=== PATIENT | male | born 2000 | race Caucasian/White ===

== ENCOUNTER 2019-11-12 12:05 | Emergency (ER) | payer BC, SELFPAY ==
[2019-11-12 12:09] VITALS: BP 146/77; PULSE 69; RESP 18; TEMP 36.5; O2SAT 98; BMI 35.2
--- NOTE | 2019-11-12 12:24 | ED_ITS ---
HPI - Headache General: Chief Complaint: Headache Stated Complaint: headache Time Seen by Provider: 11/12/19 12:09 Source: patient Mode of arrival: ambulatory Limitations: no limitations History of Present Illness: HPI Narrative: Patient is a 19-year-old male who presents to ED today for evaluation of his headache and other symptoms that have resolved upon arrival. Patient tells me around 9:30 AM while working he began developing a posterior headache, blurry vision and nausea. Patient states he went to go lay down and began developing numbness to his left arm and left face. He also states his tongue felt numb. Patient states symptoms lasted approximately 45 minutes and then subsided. He states he went home and began feeling dizzy. They contacted his PCP who recommended he come to the emergency department. Upon arrival patient has no neurological deficits. He states his vision is back to normal. He still complains of a headache and nausea. Patient has no history of migraine headaches. Patient does state he struck his head last but no other recent injury or trauma. MD elicited complaint: headache Onset (ago): hour(s) Location: other (posterior) Exacerbating factors: none Relieving factors: nothing Associated symptoms: Reports nausea; Deny chest pain, confusion, fever(s), lightheadedness, malaise, pre-syncope, rash, syncope or vomiting Review of Systems Const: Denies: fever(s), chills, body aches, fatigue or malaise Eyes: Reports: blurry vision (subsided now); Denies: photophobia, floaters or seeing flashes ENMT: Denies: odynophagia Card: Denies: chest pain, palpitations, irregular heart rhythm, edema, swelling of feet/ankles, lightheadedness, syncope, pre-syncope, dyspnea on exertion, orthopnea or leg pain with exertion Resp: Denies: dyspnea, productive cough, non-productive cough, pain on inspiration, hemoptysis or chest congestion GI: Reports: nausea; Denies: abdominal pain, vomiting, heartburn or diarrhea : Denies: flank pain, difficulty urinating, dysuria, urinary frequency, urinary urgency or urinary hesitancy Musc: Denies: neck pain, back pain or joint pain Skin/Breast: Denies: rash Neuro: Reports: headache(s), numbness in extremities (L arm-subsided now), sensory changes (facial paresthesias-subsided now) and dizziness (subsided now ); Denies: weakness in extremities, lack of coordination, difficulty walking, confusion, Slurred speech present or seizure-like activity PFSH ED PFSH: Social History (Updated 07/10/19 @ 11:03 by Estephania Silverio LPN) Smoking and tobacco status: current every day smoker e-cigarettes Physical Exam Const: COMMON NORMALS: no acute distress, patient oriented x3, no limitations and alert ORIENTATION/CONSCIOUSNESS: Yes oriented to person, Yes oriented to place and Yes oriented to time HENMT: COMMON NORMALS: normocephalic, atraumatic, hearing grossly normal bilaterally, external ears normal, EAC's normal and TM's normal bilaterally HEAD & SCALP: normal to inspection, normocephalic and atraumatic FACE & SINUS: normal facial exam and sinuses nontender EXTERNAL EAR: Yes external ears normal EXTERNAL AUDITORY CANAL: EAC's normal TYMPANIC MEMBRANE: TM's normal bilaterally MOUTH: Normal oral and palatal mucosa present, lip normal and tongue normal Eye: COMMON NORMALS: Equal, round and reactive pupils present, EOMs intact bilaterally, conjunctivae normal and no scleral icterus GENERAL EYE: appearance normal, both eyes and all related structures VISUAL ACUITY: Yes acuity normal CONJUNCTIVA: Yes conjunctivae normal PUPIL: Yes Equal, round and reactive pupils present Neck/C-Spine: COMMON NORMALS: full ROM, no lymphadenopathy and no meningeal signs Resp: COMMON NORMALS: normal respiratory effort and clear to auscultation bilaterally AUSCULTATION: clear to auscultation bilaterally Cardio: COMMON NORMALS: regular rate and regular rhythm RATE: regular rate RHYTHM: regular rhythm Extremity: COMMON NORMALS: normal to inspection and full ROM GENERAL: Yes normal exam except as noted Neuro: QUYEN COMA SCALE: document GCS findings Brainerd coma scale eye opening: Spontaneous Quyen coma scale verbal response: Orientated Brainerd coma scale motor response: Obey commands Quyen coma scale total score: 15 COMMON NORMALS: patient oriented x3, CN's II-XII intact bilaterally, moves all extremities, no focal motor deficits, no sensory deficits noted and gait normal SENSORIUM/ORIENTATION: Yes alert, Yes oriented to person, Yes oriented to place and Yes oriented to time MENINGEAL SIGNS: Yes no meningeal signs SPEECH: speech normal MOTOR EXAM: 5/5 motor strength present throughout OTHER: NIHSS-0 Skin: COMMON NORMALS: no rashes or lesions noted GENERAL SKIN EXAM: no rashes or lesions noted Course Reevaluation(s): Reevaluation #1: SUAREZ/nausea much better after IV meds/fluids Vital Signs: Vital signs: Vital Signs Temperature 97.7 F 11/12/19 12:09 Pulse Rate 69 11/12/19 15:04 Respiratory Rate 16 11/12/19 15:04 Blood Pressure 126/55 11/12/19 15:04 Pulse Oximetry 96 11/12/19 15:04 MDM - Headache MDM Narrative: Medical decision making narrative: Patient with absolutely no neurological deficits here. His SUAREZ/nausea improved with IV meds/fluids. Patient feels comfortable going home at this time. His work up with labs/head CT are normal. Recommend close obs on symptoms at home and returning to ED for any concerns. Lab Data: Labs: Lab Results 11/12/19 11/12/19 11/12/19 Range/Units 12:58 12:58 13:48 WBC 5.6 (4.5-13.0) 10^3/ uL RBC 4.52 (4.1-5.3) 10^6/u L Hgb 13.2 (11.7-16.6) g/dL Hct 39.3 L (42.0-52.0) % MCV 86.9 (80-94) fL MCH 29.2 (28.0-34.0) pg MCHC 33.6 (30.0-36.0) g/dL RDW 11.8 L (12.1-15.1) % Plt Count 238 (130-400) 10^3/c mm MPV 10.0 (7.4-10.4) fL Neut % (Auto) 40.8 % Lymph % (Auto) 46.6 % Desoto % (Auto) 10.2 % Eos % (Auto) 1.8 % Baso % (Auto) 0.4 % Neut # (Auto) 2.29 (1.8-8.0) 10^3/u L Lymph # (Auto) 2.6 (1.5-6.5) 10^3/u L Desoto # (Auto) 0.6 (0.2-0.9) 10^3/u L Eos # (Auto) 0.1 (0.0-0.8) 10^3/u L Baso # (Auto) 0.0 (0.0-0.1) 10^3/u L Nucleated RBC % (a uto) 0 % Nucleated RBCs # 0.0 /100WBC Sodium 137 (136-145) mmol/L Potassium 4.1 (3.5-5.1) mmol/L Chloride 104 (98-107) mmol/L Carbon Dioxide 27 (22-29) mmol/L Anion Gap 10.1 (5-19) BUN 16 (6-20) mg/dL Creatinine 0.8 (0.7-1.2) mg/dL GFR Calculation 123.2 (90-130) mL/min Glucose 91 (65-115) mg/dL Calculated Osmolal ity 280 L (285-295) mOsm/k g Calcium 8.8 (8.5-10.5) mg/dL Total Bilirubin 0.2 (0.15-1.2) mg/dL AST 15 (0-40) U/L ALT 18 (0-41) U/L Alkaline Phosphata se 55 (40-130) IU/L Total Protein 6.7 (6.6-8.7) g/dL Albumin 4.2 (3.5-5.2) g/dL Globulin 2.5 (1.3-4.6) g/dL Urine Color Yellow (Yellow) Urine Appearance Clear (CLEAR) Urine pH 6 (5-7) Ur Specific Gravit y 1.020 (1.005-1.030) Urine Protein Neg (Negative) Urine Glucose (UA) Norm (Normal) Urine Ketones Negative (Negative) Urine Blood Neg (Negative) Urine Nitrate Negative (Negative) Urine Bilirubin Neg (NEGATIVE) Urine Urobilinogen Norm (Negative) mg/dL Ur Leukocyte Laverne ase Negative (Negative) Imaging Data^: CT Head: Radiologist's impression: [address] [address] [address] Scan Report Signed Patient: Iván Arreguin Unit #: [id number] : 2000 [id number] Age/Sex: 19 / M ADM Date: 11/12/19 Loc: ER Room/Bed: Attending Dr: Ordering Provider/Ordering MD: Melissa Brink Date of Service: 11/12/19 Procedure(s): CT head wo con* [id number] Accession Number(s): [id number] Report Number: [id number] WS: [id number] EXAM: CT head wo con* [id number] DATE OF EXAMINATION: 11/12/2019, 1332 hours COMPARISON: None. HISTORY: 19 years old with headache left side of the head with left-sided numbness. TECHNIQUE: Thin slice imaging obtained through the brain without the utilization of contrast. Images viewed in brain, subdural and bone window with reconstructions. CONTRAST: None DLP: 832.[address] scans at [facility] use at least one of these dose optimization techniques: automated exposure control; mA and/or kV adjustment per patient size (includes targeted exams where dose is matched to clinical indication); or iterative reconstruction. FINDINGS: Matthews-white differentiation is normal. No findings of hemorrhage, hydrocephalus, mass, mass effect or abnormal extra-axial fluid collection is seen. No acute skull abnormality is demonstrated. Extracalvarial soft tissues are unremarkable. Paranasal sinuses and mastoid air cells are pneumatized and well aerated. CT/CT head wo con* [id number] IMPRESSION: No acute intracranial process. Dictated By: Andrés Thomas MD Signed By: Andrés Thomas MD Signed Date/Time: 11/12/19 135 DD/ 135 Discharge Plan Discharge Patient Disposition: Home Clinical Impression: Headache Qualifiers: Headache type: unspecified Headache chronicity pattern: acute headache Intractability: not intractable Qualified Code(s): R51 - Headache Condition: Stable Prescriptions: No Action ibuprofen 200 mg Tablet 800 mg PO PRN RF: 0 Discharge Orders: Discharge Order (Routine); Ordered 11/12/19 Ordered By: Melissa Brink Referrals: Leonid Cherry Jr, MD [Primary Care Provider] - Patient Instructions: Headache - Migraine (Adult), Migraine Headache (ED), Acute Headache (ED) Activity Restrictions/Additional Instructions: Again as we discussed you have no neurological deficits at this time. Headache and nausea have improved with medications here. Patient's labs and head CT are normal. Please return to the emergency department for worsening headache, onset of severe dizziness impairing gait, repetitive episodes of vomiting, visual loss, numbness/tingling to your extremities, slurred speech, facial drooping, any other concerns you may have. Discharge Date/Time: 11/12/19 15:11 Coding Level of Care Code ED Airset Caster for Chg Fwd Exam Comprehensive
[2019-11-12] MEDS: sodium chloride 0.9% 1,000 ML 999 ML IV ×2 (12:35→14:06)
--- NOTE | 2019-11-12 12:44 | CT_ITS ---
WS: [id number] EXAM: CT head wo con* [id number] DATE OF EXAMINATION: 11/12/2019, 1332 hours COMPARISON: None. HISTORY: 19 years old with headache left side of the head with left-sided numbness. TECHNIQUE: Thin slice imaging obtained through the brain without the utilization of contrast. Images viewed in b rain, subdural and bone window with reconstructions. CONTRAST: None DLP: 832.[address] scans at [facility] use at least one of these dose optimization techniques: automat ed exposure control; mA and/or kV adjustment per patient size (includes targeted exams where dose is matched to clinical indication); or iterative reconstruction. FINDINGS: Matthews-white differentiation is normal. No findings of hemorrhage, hydrocephalus, mass, mass effect or abnormal extra-axial fluid collection is seen. No acute skull abnormality is demonstrated. Extracalv arial soft tissues are unremarkable. Paranasal sinuses and mastoid air cells are pneumatized and well aerated. CT/CT head wo con* [id number] IMPRESSION: No acute intracranial process.
[2019-11-12 13:03] LABS: Basophils % 0.4 %; Eosinophils # 0.1 10^3/uL (0.0-0.8); Eosinophils % 1.8 %; Hematocrit 39.3 % (42.0-52.0); Hemoglobin 13.2 g/dL (11.7-16.6); Lymphocytes # 2.6 10^3/uL (1.5-6.5); Lymphocytes % 46.6 %; Mean Corpuscular HGB Conc 33.6 g/dL (30.0-36.0); Mean Corpuscular Hemoglobin 29.2 pg (28.0-34.0); Mean Corpuscular Volume 86.9 fL (80-94); Monocytes # 0.6 10^3/uL (0.2-0.9); Monocytes % 10.2 %; Neutrophils # 2.29 10^3/uL (1.8-8.0); Neutrophils % 40.8 %; Nucleated Red Blood Cells % 0 %; Platelet Count 238 10^3/cmm (130-400); Red Blood Count 4.52 10^6/uL (4.1-5.3); Red Cell Distribution Width 11.8 % (12.1-15.1); White Blood Count 5.6 10^3/uL (4.5-13.0)
[2019-11-12 13:20] LABS: Alanine Aminotransferase 18 U/L (0-41); Albumin Level 4.2 g/dL (3.5-5.2); Alkaline Phosphatase 55 IU/L (40-130); Anion Gap 10.1 (5-19); Aspartate Amino Transferase 15 U/L (0-40); Blood Urea Nitrogen 16 mg/dL (6-20); Calcium 8.8 mg/dL (8.5-10.5); Carbon Dioxide 27 mmol/L (22-29); Chloride 104 mmol/L (98-107); Globulin 2.5 g/dL (1.3-4.6); Glomerular Filtration Rate 123.2 mL/min (90-130); Glucose 91 mg/dL (65-115); Osmolality Calculated 280 mOsm/kg (285-295); Potassium 4.1 mmol/L (3.5-5.1); Sodium 137 mmol/L (136-145); Total Bilirubin 0.2 mg/dL (0.15-1.2); Total Protein 6.7 g/dL (6.6-8.7)
[2019-11-12] MEDS: diphenhydrAMINE 50 mg/mL SDV 1mL IVP (13:22)
[2019-11-12] MEDS: ondansetron 2 mg/ML SDV 2 mL 4 MG IVP (13:23)
[2019-11-12] MEDS: ketorolac 60 mg/2 mL INJ 30 MG IVP (13:24)
[2019-11-12 13:30] VITALS: BP 124/71; PULSE 55; RESP 16; O2SAT 99
[2019-11-12 13:59] VITALS: BP 137/65; PULSE 75; RESP 16; O2SAT 98
[2019-11-12 14:03] LABS: Add Urine Microscopic? NO
[2019-11-12 14:17] LABS: Bilirubin Urine Neg (NEGATIVE); Blood Urine Neg (Negative); Glucose Urine UA Norm (Normal); Ketones Urine Negative (Negative); Leukocyte Esterase Urine Negative (Negative); Nitrate Urine Negative (Negative); Protein Urine Neg (Negative); Urine Appearance Clear (CLEAR); Urine Color Yellow (Yellow); Urobilinogen Urine Norm (Negative); pH Urine 6 (5-7)
[2019-11-12 15:04] VITALS: BP 126/55; PULSE 69; RESP 16; O2SAT 96
== END 2019-11-12 15:11 | disposition home or self-care (01) ==
PROVIDERS: Emergency Provider Physician Assistant; PCP Family Medicine
DX: R51 Headache (principal); F17.290 Nicotine dependence, other tobacco product, uncomplicated
CPT/HCPCS: 12345; 36415; 70450; 80053; 81003; 85025; 96361; 96374; 96375; 99283; J1200; J1885; J2405; J7030

== ENCOUNTER 2021-08-07 20:48 | Emergency (ER) | payer BC, SELFPAY ==
[2021-08-07 20:49] VITALS: BP 136/72; PULSE 109; RESP 16; TEMP 36.6; O2SAT 99
--- NOTE | 2021-08-07 21:06 | W.ED.EXTPRO ---
HPI - Extremity Problem General: Chief complaint: Extremity Injury, Upper Stated complaint: L thumb cut Time Seen by Provider: 08/07/21 20:58 History of Present Illness: 21-year-old male patient comes in today with complaints of laceration to the dorsal base of the left thumb. Patient has good range of motion of the thumb. Patient cannot recall his last tetanus shot. Patient and his father both cleaned the wound with water at home and put some superglue to it. The glue has made it difficult to evaluate the wound. Tendon function is normal. Associated symptoms: Deny chest pain or fever(s) Review of Systems General: Reports: 10 or more systems reviewed and unremarkable except in HPI and below Const: Denies: fever(s) Card: Denies: chest pain Resp: Denies: dyspnea GI: Denies: nausea or vomiting : Reports: other (History of 1 kidney) Skin/Breast: Reports: new lesions [facility] ED PFSH: Social History (Updated 07/10/19 @ 11:03 by Estephania Silverio LPN) Smoking and tobacco status: current every day smoker e-cigarettes Physical Exam Const: COMMON NORMALS: alert HENMT: COMMON NORMALS: normocephalic HEAD & SCALP: normocephalic Neck/C-Spine: COMMON NORMALS: full ROM Resp: COMMON NORMALS: normal respiratory effort Cardio: COMMON NORMALS: regular rate RATE: regular rate Extremity: LEFT UPPER EXTREMITY: Yes hand & digits (Dorsal hand at the base of the thumb, normal tendon function) Left hand and digits: Yes inspection, Yes palpation, Yes ROM, Yes neurovascular exam and Yes tendon exam Neuro: SENSORIUM/ORIENTATION: Yes alert Skin: NARRATIVE SKIN EXAM: 1 cm laceration to left hand. Procedures Laceration Laceration 1: Site: hand Side (If applicable): left Size (cm): 3 Description: linear Depth: simple, single layer Amount of anesthesia used (mL): 3 Pre-repair: wound explored and irrigated extensively Skin layer closed with: vicryl Size (cm): 4-0 Number of sutures: 3 Technique: horizontal mattress Course Vital Signs: Vital signs: Vital Signs Temperature 97.8 F 08/07/21 20:49 Pulse Rate 109 H 08/07/21 20:49 Respiratory Rate 16 08/07/21 20:49 Blood Pressure 136/72 08/07/21 20:49 Pulse Oximetry 99 08/07/21 20:49 MDM - Extremity (Nontraumatic) Medical Decision Making 21-year-old male patient comes in today with laceration to the left hand. On exam at the base of the left thumb on the dorsal side there is a 3 cm laceration. Patient has good normal range of motion of the finger. Wound had to be cleaned with bacitracin ointment to remove superglue from the wound site. Patient had normal range and function tendon. Differential diagnosis includes fracture, sprain, foreign body. No fracture was noted in the wound. No foreign body was noted. Wound was irrigated well and then closed with 4-0 Vicryl in horizontal mattress sutures. Patient tolerated well. Patient will be placed on Augmentin 1 tablet twice a day for prophylaxis therapy due to delayed care. Patient reported understanding of care plan and need for follow-up or return to ER. Discharge Plan Discharge Patient Disposition: Home Clinical Impression: Hand laceration Qualifiers: Encounter type: initial encounter Foreign body presence: without foreign body Laterality: left Qualified Code(s): S61.412A - Laceration without foreign body of left hand, initial encounter Condition: Stable Prescriptions: New amoxicillin-pot clavulanate 875-125 mg tablet 1 tab PO BID Qty: 14 0RF No Action ibuprofen 200 mg Tablet 800 mg PO PRN 0RF Discharge Orders: Discharge ED (Routine); Ordered 08/07/21 Ordered By: Juma Bravo Discharge Diet: Usual diet Discharge Activity: Increase activity as tolerated Patient Instructions: Laceration (ED) Activity Restrictions/Additional Instructions: Keep wound clean and dry. It is very important to keep the wound is dry and clean as possible for the next 2 days. Splint the wound with bulky dressing. Monitor site for signs of infection. Sutures need to come out in 7 to 10 days. Follow-up with primary care in 1 week for recheck. Take antibiotics 1 tablet twice a day for the next 7 days. Use acetaminophen and ibuprofen for pain. Return to ER for new concerns. Coding Level of Care Code ED Fire Lieutenant Marine for Shakira Quispe Exam Detailed
[2021-08-07] MEDS: amoxicillin-clav 875-125 mg Tablet 1 TAB PO (21:36)
[2021-08-07] MEDS: tetanus-dipt-pertussis 0.5 mL SDV IM (21:37)
[2021-08-07] MEDS: bacitracin ointment Pkt 1 EACH TOPICAL (21:37)
[2021-08-07 21:53] VITALS: RESP 16
== END 2021-08-07 21:54 | disposition home or self-care (01) ==
PROVIDERS: Emergency Provider Nurse Practitioner Family
DX: S61.012A Laceration without foreign body of left thumb without damage to nail, initial encounter (principal); X58.XXXA Exposure to other specified factors, initial encounter; Z23 Encounter for immunization
CPT/HCPCS: 12001; 90471; 90715; 99283

== ENCOUNTER 2021-12-21 12:42 | Outpatient (CLI) | payer OTHER, SELFPAY ==
--- NOTE | 2021-12-21 12:49 | MR_ITS ---
WS: [id number] MRI RIGHT KNEE NONCONTRAST TECHNIQUE: Axial PD, coronal PD fat sat, coronal PD, sagittal PD, and sagittal PD fat-sat images obta ined. CLINICAL INFORMATION: + LAUREN TEST RIGHT KNEE COMPARISON: None. FINDINGS: Distal quadriceps and patella tendons are intact. Tibial tunnel with evidence of prior ACL repair. AC L graft appears intact but somewhat thin and diminutive. Mucoid degeneration in the ACL graft. Normal PCL. Small suprapatellar effusion. Moderate chondromalacia patella. Medial and lateral patella r retinacula appear intact. Hypertrophic patella. Medial and lateral collateral ligaments appear inta ct. Normal popliteal fossa. Chronic thinning of the medial and lateral meniscus. Radial tear involvin g the posterior horn medial meniscus extending to the articular surface and free edge of the meniscus . This also extends to the meniscal root. MR/MR knee RT wo con* [id number] IMPRESSION: 1. Prior ACL repair. ACL graft appears intact but somewhat diminutive with muc oid degeneration. 2. Normal PCL. 3. Radial tear involving the posterior horn medial meniscus extending to the m eniscal root and articular surface. This extends to the free edge of the menisc us. 4. Moderate chondromalacia patella. Small suprapatellar effusion. 5. Grade III chondromalacia involving the medial and lateral joint compartment s. 6. Medial and lateral collateral ligaments appear intact. Outbridge grading: grade III: partial-thickness cartilage loss with focal ulcer ation
== END 2021-12-21 12:43 | disposition home or self-care (01) ==
LOC: RAD 12:42
PROVIDERS: Visit Provider Nurse Practitioner
DX: S83.241A Other tear of medial meniscus, current injury, right knee, initial encounter (principal); X58.XXXA Exposure to other specified factors, initial encounter; M25.461 Effusion, right knee; M22.41 Chondromalacia patellae, right knee
CPT/HCPCS: 73721

== ENCOUNTER 2023-02-04 16:26 | Emergency (ER) | payer BC, SELFPAY ==
[2023-02-04 17:01] VITALS: BP 157/63; PULSE 81; RESP 16; TEMP 36.4; O2SAT 100; BMI 36.2
--- NOTE | 2023-02-04 18:26 | XRR_ITS ---
PROCEDURE INFORMATION: Exam: XR Left Tibia and Fibula Exam date and time: 02/04/2023 6:40 PM Age: 22 years old Clinical indication: Lower leg; Patient HX: Lt lateral lower extremity pain after being pinned against fence by cow; Abrasion to left lateral lower extremity TECHNIQUE: Imaging protocol: Radiologic exam of the left tibia and fibula. Views: 2 views. COMPARISON: No relevant prior studies available. FINDINGS: Bones/joints: No acute fracture. No dislocation. Normal bone mineralization. No joint effusion. Joint spaces are maintained. There is an ununited os trigonum of the talus. Accessory ossicle adjacent to the cuboid bone. Soft tissues: No soft tissue swelling. No radiopaque foreign body. XR/XR tibia fibula LT 2V [id number] IMPRESSION: 1. No acute fracture of the left tibia/fibula. Followup imaging recommended in 7-14 days if clinical concern for fracture persists. 2. Incidental/nonacute findings are listed in the report.
[2023-02-04 18:35] VITALS: BP 168/78; RESP 17; O2SAT 98
--- NOTE | 2023-02-04 18:56 | W.ED.EXTPRO ---
HPI - Extremity Problem General: Chief complaint: Extremity Injury, Lower Stated complaint: Hurt left leg Time Seen by Provider: 02/04/23 18:11 History of Present Illness: Patient is a 22-year-old male that presents to the emergency department with left calf pain. 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 Patient has been able to ambulate on the extremity. This has been difficult due to pain though. Review of Systems General: Reports: 10 or more systems reviewed and unremarkable except in HPI and below PFSH ED PFSH: Social History (Updated 01/13/22 @ 09:50 by [place] Obrien LPN) Smoking and tobacco/nicotine status: current every day tobacco/nicotine user cigarettes Packs smoked per day: 0.01 and e-cigarettes E-Cigarette Details: vaporizer device and with nicotine E-cig/vape details: Refill/ week Second hand smoke exposure: No Alcohol intake: current Alcohol type: beer and hard liquor Substance/Drug Use: never Physical Exam Narrative: EXAM NARRATIVE: No acute distress Alert and orient x3 Afebrile vital signs stable Nonlabored breathing Moving all extremities Left lower extremity: Skin is clean dry intact Patient is nontender to palpation over the left hip, femur, knee. He is nontender to palpation over the ankle He has full active range of motion of hip knee and ankle Patient can dorsiflex plantarflex the foot Able to dorsiflex great toe Sensation intact to light touch at medial, lateral, dorsal, plantar surface of the foot and first webspace DP pulses palpable and cap refills less than 3 seconds Course Vital Signs: Vital signs: Vital Signs Temperature 97.6 F 02/04/23 17:01 Pulse Rate 81 02/04/23 17:01 Respiratory Rate 17 02/04/23 18:35 Blood Pressure 168/78 02/04/23 18:35 Pulse Oximetry 98 02/04/23 18:35 Oxygen Delivery Me thod Room Air 02/04/23 18:35 MDM - Extremity (Nontraumatic) Medical Decision Making Patient presented with left lateral calf pain 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 He reports hearing and feeling a pop and pain. Differential diagnosis includes fracture, fracture dislocation, contusion, muscle strain, sprain. Patient underwent XR imaging of the left tibia. No acute fractures identified. All radiology interpretation(s) finalized by discharge Discharge Plan Discharge Patient Disposition: Home Clinical Impression: Contusion of left leg, Muscle strain Condition: Stable Prescriptions: No Action fluoxetine [Prozac] 20 mg capsule 20 mg PO DAILY Qty: 30 1RF trazodone 50 mg tablet 100 mg PO .HS PRN (Reason: insomnia) Qty: 60 1RF ibuprofen 200 mg Tablet 800 mg PO PRN Discharge Orders: Discharge ED (Routine); Ordered 02/04/23 Ordered By: Sayda Simpson Referrals: Jocelyn Stringer MD [Primary Care Provider] - Discharge Diet: Advance as tolerated Discharge Activity: Resume usual activity Patient Instructions: Muscle Strain (ED), Pain Management Activity Restrictions/Additional Instructions: When she did ice the area, use ibuprofen and Tylenol for pain You can bear weight as tolerated Keep the extremity elevated when at rest. Return to the emergency department for new, concerning, worsening symptom Coding Level of Care Code ED J2Ee Android Developer for Shakira Quispe
[2023-02-04] MEDS: ketorolac 60 mg/2 mL INJ IM (19:31)
[2023-02-04 19:32] VITALS: BP 168/78; PULSE 96; RESP 17; O2SAT 98
== END 2023-02-04 19:33 | disposition home or self-care (01) ==
PROVIDERS: Emergency Provider Nurse Practitioner; PCP Family Medicine
DX: S80.12XA Contusion of left lower leg, initial encounter (principal); S86.912A Strain of unspecified muscle(s) and tendon(s) at lower leg level, left leg, initial encounter; F17.210 Nicotine dependence, cigarettes, uncomplicated; F17.290 Nicotine dependence, other tobacco product, uncomplicated; W55.22XA Struck by cow, initial encounter
CPT/HCPCS: 73590; 96372; 99284; J1885

== ENCOUNTER → 2024-06-13 07:20 | Outpatient (BNVA) | payer BC, SELFPAY | PROVIDERS: PCP Family Medicine; Visit Provider Podiatrist Foot & Ankle Surgery | DX: M79.671 Pain in right foot (principal); M25.571 Pain in right ankle and joints of right foot; S93.621A Sprain of tarsometatarsal ligament of right foot, initial encounter; X50.9XXA Other and unspecified overexertion or strenuous movements or postures, initial encounter | CPT/HCPCS: 73610; 73620 ==

== ENCOUNTER 2024-06-28 07:48 | Outpatient (CLI) | payer BC, SELFPAY ==
--- NOTE | 2024-06-28 08:00 | MRR_ITS ---
PROCEDURE INFORMATION: Exam: MR Right Lower Extremity Without Contrast; Forefoot Exam date and time: 06/28/2024 8:25 AM Age: 24 years old Clinical indication: Injury or trauma; Sprain or strain; Right; Injury date: 2+ months ago; Injury details: Injured RT foot 2 + months, stepped on cattle guard. Poss. Sprain; Additional info: S93.629a - sprain of tarsometatarsal ligament of unspecif. . . TECHNIQUE: Imaging protocol: MR of the right foot without contrast. Exam focused on the forefoot. COMPARISON: CR XR foot RT 2V [id number] 06/13/2024 7:28 AM FINDINGS: Bones/joints: Normal osseous alignment. No acute fracture. There is a healed fracture of the base of the 5th metatarsal. Mild patchy bone marrow edema involving the proximal shafts and bases of the 3rd and 4th metatarsals is noted, characterized by hyperintensity on the fluid sensitive sequences with minimal corresponding T1 hypointensity. LIGAMENTS: Collateral ligaments of digits: Unremarkable. No evidence of tear. TENDONS: Flexor tendons of foot: Unremarkable. No evidence of tear. Extensor tendons of foot: Unremarkable. No evidence of tear. Soft tissues: Unremarkable. MR/MR foot RT wo con* [id number] IMPRESSION: Bone marrow edema in the proximal 3rd and 4th metatarsals is noted, likely related to bone contusions or stress changes in the setting of trauma.
== END 2024-06-28 07:49 | disposition home or self-care (01) ==
LOC: RAD 07:51
PROVIDERS: PCP Family Medicine; Visit Provider Podiatrist Foot & Ankle Surgery
DX: Z87.81 Personal history of (healed) traumatic fracture (principal); R93.6 Abnormal findings on diagnostic imaging of limbs
CPT/HCPCS: 73718

== ENCOUNTER 2024-09-27 22:33 | Emergency (ER) | payer BC, SELFPAY ==
--- OUTSIDE RECORDS SUMMARY | 2024-09-27 22:40 | XMS_ITS | Encounter Summary ---
Author Organization [facility] Address [address] [place] [address] Care Team Providers Care Fire Investigation Lieutenant Name Role Phone Leonid Cherry MD Primary Care Provider [phone] Encounter Details Date Type Department Care Team (Latest Contact Info) Description 01/30/2001 Outpatient Historical [facility] Gen Spec S[facility] [place] [address] [address] [place] [id number] Jerardo Valdez MD [address], [address] [place] [address] UNILAT INGUINAL HERNIA (Primary Dx); SURGERY FOLLOWUP, UNSPEC Social History Tobacco Use Types Packs/Day Years Used Date Smoking Tobacco: Never Assessed Sex and Gender Information Value Date Recorded Sex Assigned at Not on file 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
--- OUTSIDE RECORDS SUMMARY | 2024-09-27 22:40 | XMS_ITS | Encounter Summary ---
Author Organization [facility] Address [address] [place] [address] Care Team Providers Care Hot Baller Name Role Phone Leonid Cherry MD Primary Care Provider [phone] Encounter Details Date Type Department Care Team (Latest Contact Info) Description 10/26/2003 Outpatient Historical [facility] [address] [place] [phone] Zeinab Larios MD [address] [address] STREP SORE THROAT (Primary Dx) Social History Tobacco Use Types Packs/Day Years Used Date Smoking Tobacco: Never Assessed Sex and Gender Information Value Date Recorded Sex Assigned at Not on file 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
--- OUTSIDE RECORDS SUMMARY | 2024-09-27 22:40 | XMS_ITS | Encounter Summary ---
Author Organization [facility] Address [address] [place] [address] Care Team Providers Care Metrologist Name Role Phone Leonid Cherry MD Primary Care Provider [phone] Encounter Details Date Type Department Care Team (Latest Contact Info) Description 01/15/2004 Outpatient Historical [facility] [place] [address] [facility] [address] [place] [address] Starla Christian, BEAUTY PARLOR CLEANER NO ADDRESS ON FILE ABDOMINAL PAIN UNSPEC SITE (Primary Dx) Social History Tobacco Use Types Packs/Day Years Used Date Smoking Tobacco: Never Assessed Sex and Gender Information Value Date Recorded Sex Assigned at Not on file 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
--- OUTSIDE RECORDS SUMMARY | 2024-09-27 22:40 | XMS_ITS | Encounter Summary ---
Author Organization [facility] Address [address] [place] [address] Care Team Providers Care Beef Cattle Specialist Name Role Phone Leonid Cherry MD Primary Care Provider [phone] Encounter Details Date Type Department Care Team (Latest Contact Info) Description 02/08/2005 Outpatient Historical [facility] [address] [place] [phone] Pipo Alfaro MD [address] [place] [address] IMPETIGO (Primary Dx) Social History Tobacco Use Types Packs/Day Years Used Date Smoking Tobacco: Never Assessed Sex and Gender Information Value Date Recorded Sex Assigned at Not on file 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
--- OUTSIDE RECORDS SUMMARY | 2024-09-27 22:40 | XMS_ITS | Encounter Summary ---
Author Organization [facility] Address [address] [place] [address] Care Team Providers Care Assembly Department Supervisor Name Role Phone Leonid Cherry MD Primary Care Provider [phone] Encounter Details Date Type Department Care Team (Latest Contact Info) Description 11/08/2004 Outpatient Historical [facility] Medicine [address] [address] Don Michael MD [address], [place] [phone] VACCINE FOR DTP + TAB (Primary Dx); VACCINE FOR DISEASE NEC; VACCINE [id number] Social History Tobacco Use Types Packs/Day Years Used Date Smoking Tobacco: Never Assessed Sex and Gender Information Value Date Recorded Sex Assigned at Not on file 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 Gender Identity Not on file Sexual Orientation Not on file documented as of this encounter Plan of Treatment Not on file documented as of this encounter Visit Diagnoses Diagnosis Need for prophylactic vaccination with eseqajksuk-fojzaqo-vyytttxrc with typhoid-paratyphoid (DTP + TAB) vaccine- Primary Need for prophylactic vaccination and inoculation against other specified disease Need for prophylactic vaccination with pzhnidg-idyxp-cjqieht (MMR) vaccine documented in this encounter Care Teams Assembly Department Supervisor Relationship Specialty Start Date End Date Leonid Cherry MD [address] [place] [address] PCP - General Family Practice 05/02/16 documented as of this encounter
--- OUTSIDE RECORDS SUMMARY | 2024-09-27 22:40 | XMS_ITS | Encounter Summary ---
Author Organization [facility] Address [address] [place] [address] Care Team Providers Care University Tutor Name Role Phone Leonid Cherry MD Primary Care Provider [phone] Reason for Referral * Outpatient Services (Routine) - Closed Specialty Diagnoses / Procedures Referred By Kassie t Referred To Contact Diagnoses Unspecified internal derangement of right knee Procedures MRI KNEE WO CONTRAST RIGHT Leonid Cherry MD [address] [place] [address] Phone: tel: fax: [facility] Pre-Registration [place] CALL TO MAKE APPOINTMENT ONLY [address] [place] [address] Phone: tel: fax: Referral ID Status Reason Start Date Expiration Date V isits Requested Visits Authorized [id number] Closed [facility] TO SCHEDULE ([facility]) 04/28/2016 05/29/2017 1 1 CTOR DIGITAL ANALYTICS Encounter Details Date Type Department Care Team (Latest Contact Info) Description 04/28/2016 Ancillary Orders [facility] Pre-Registration [place] CALL TO MAKE APPOINTMENT ONLY [address] [place] [address] Leonid Cherry MD [address] [place] [address] Unspecified internal derangement of right knee Social History Tobacco Use Types Packs/Day Years Used Date Smoking Tobacco: Never Assessed Sex and Gender Information Value Date Recorded Sex Assigned at Not on file Legal Sex Male 4:25 AM DIRECTOR DIGITAL ANALYTICS Gender Identity Not on file Sexual Orientation Not on file documented as of this encounter Plan of Treatment Not on file documented as of this encounter Results * MRI KNEE WO CONTRAST RIGHT (05/04/2016 7:42 AM DIRECTOR DIGITAL ANALYTICS) Anatomical Region Laterality Modality Lower Extremity Magnetic Resonan ce 05/04/2016 7:42 AM DIRECTOR DIGITAL ANALYTICS Impressions 05/04/2016 4:21 PM DIRECTOR DIGITAL ANALYTICS IMPRESSION: Please see below. Exam: MRI KNEE WO CONTRAST RIGHT Date/Time of Exam: 05/04/2016 7:42 AM Reason For Exam: Unspecified internal derangement of right knee. Technique: Proton density sagittal, T1 coronal, T2 fat-sat sagittal and axial, STIR coronal. Comparison: None Findings: There is nonvisualization of a normal appearing femoral aspect of the anterior cruciate ligament. The PCL, MCL, and LCL complex are intact. Incomplete imaging of a moderate effusion of the suprapatellar pouch is noted. A medial plica of the suprapatellar pouch is present. This is thickened up to 2.9 mm. No significant popliteal cyst is present. Slight lateral subluxation of the patella from the trochlea on the static examination is present. The extensor mechanism is intact. No unequivocal grade III lateral meniscal signal to suggest a definite arthroscopically visible unstable meniscal tear is identified. Incomplete grade III vertical signal extending to the superior articular surface of the periphery of the posterior horn of the medial meniscus on 3 consecutive proton density parasagittal images is present. Linear signal abnormality near isointense to joint fluid of the meniscocapsular junction of the posterior medial meniscus noted. Subchondral marrow signal on fluid sensitive sequences involving the posterior lateral tibial plateau is noted. No additional marrow signal abnormality is identified. IMPRESSION: 1. More subacute appearing full thickness tear of the anterior cruciate ligament. 2. Incomplete vertical peripheral longitudinal tear extending to the superior articular surface of the periphery of the posterior horn of the medial meniscus and probable meniscocapsular injury of the posterior horn of the medial meniscus. 3. Contusion/microtrabecular fracture of the posterior lateral tibial plateau. 4. Moderate effusion of the suprapatellar pouch incompletely imaged with incidental note of abnormally thickened medial plica of the suprapatellar pouch. [id number] Narrative Procedure Note Nestor Contreras MD - 05/04/2016 IMPRESSION IMPRESSION: Please see below. Exam: MRI KNEE WO CONTRAST RIGHT Date/Time of Exam: 05/04/2016 7:42 AM Reason For Exam: Unspecified internal derangement of right knee. Technique: Proton density sagittal, T1 coronal, T2 fat-sat sagittal and axial, STIR coronal. Comparison: None Findings: There is nonvisualization of a normal appearing femoral aspect of the anterior cruciate ligament. The PCL, MCL, and LCL complex are intact. Incomplete imaging of a moderate effusion of the suprapatellar pouch is noted. A medial plica of the suprapatellar pouch is present. This is thickened up to 2.9 mm. No significant popliteal cyst is present. Slight lateral subluxation of the patella from the trochlea on the static examination is present. The extensor mechanism is intact. No unequivocal grade III lateral meniscal signal to suggest a definite arthroscopically visible unstable meniscal tear is identified. Incomplete grade III vertical signal extending to the superior articular surface of the periphery of the posterior horn of the medial meniscus on 3 consecutive proton density parasagittal images is present. Linear signal abnormality near isointense to joint fluid of the meniscocapsular junction of the posterior medial meniscus noted. Subchondral marrow signal on fluid sensitive sequences involving the posterior lateral tibial plateau is noted. No additional marrow signal abnormality is identified. IMPRESSION: 1.More subacute appearing full thickness tear of the anterior cruciate ligament. 2.Incomplete vertical peripheral longitudinal tear extending to the superior articular surface of the periphery of the posterior horn of the medial meniscus and probable meniscocapsular injury of the posterior horn of the medial meniscus. 3.Contusion/microtrabecular fracture of the posterior lateral tibial plateau. 4.Moderate effusion of the suprapatellar pouch incompletely imaged with incidental note of abnormally thickened medial plica of the suprapatellar pouch. [id number] Leonid Cherry MD MR ORDERABLES Final Result documented in this encounter Visit Diagnoses Diagnosis Unspecified internal derangement of right knee Unspecified internal derangement of right knee documented in this encounter Care Teams University Tutor Relationship Specialty Start Date End Date Leonid Cherry MD [address] [place] [address] PCP - General Family Practice 05/02/16 documented as of this encounter
--- OUTSIDE RECORDS SUMMARY | 2024-09-27 22:40 | XMS_ITS | Encounter Summary ---
Author Organization [facility] Address [address] [place] [address] Care Team Providers Care Experimental Physicist Name Role Phone Leonid Cherry MD Primary Care Provider [phone] Encounter Details Date Type Department Care Team (Latest Contact Info) Description 01/15/2004 Outpatient Historical [facility] [address] [place] [phone] Starla Christian, LAND MANAGER NO ADDRESS ON FILE UNILAT INGUINAL HERNIA (Primary Dx) Social History Tobacco Use Types Packs/Day Years Used Date Smoking Tobacco: Never Assessed Sex and Gender Information Value Date Recorded Sex Assigned at Not on file Legal Sex Male 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
--- OUTSIDE RECORDS SUMMARY | 2024-09-27 22:40 | XMS_ITS | Encounter Summary ---
Author Organization [facility] Address [address] [place] [address] Care Team Providers Care Senior Support Analyst Name Role Phone Leonid Cherry MD Primary Care Provider [phone] Encounter Details Date Type Department Care Team (Latest Contact Info) Description 11/05/2004 Outpatient Historical [facility] [address] [place] [phone] Pipo Alfaro MD [address] [place] [address] Routine child health exam (Primary Dx) Social History Tobacco Use Types Packs/Day Years Used Date Smoking Tobacco: Never Assessed Sex and Gender Information Value Date Recorded Sex Assigned at Not on file 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
--- OUTSIDE RECORDS SUMMARY | 2024-09-27 22:40 | XMS_ITS | Encounter Summary ---
Author Organization [facility] Address [address] [place] [address] Care Team Providers Care Mixer Operator Raw Salt Name Role Phone Leonid Cherry MD Primary Care Provider [phone] Encounter Details Date Type Department Care Team (Latest Contact Info) Description 01/04/2005 Outpatient Historical [facility] [address] [place] [address] Pipo Alfaro MD [address] [place] [address] SPRAIN OF FOOT NOS (Primary Dx) Social History Tobacco Use Types Packs/Day Years Used Date Smoking Tobacco: Never Assessed Sex and Gender Information Value Date Recorded Sex Assigned at Not on file 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
--- OUTSIDE RECORDS SUMMARY | 2024-09-27 22:40 | XMS_ITS | Encounter Summary ---
Author Organization [facility] Address [address] [address] 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
--- OUTSIDE RECORDS SUMMARY | 2024-09-27 22:40 | XMS_ITS | Encounter Summary ---
Author Organization [facility] Address [address] 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
--- OUTSIDE RECORDS SUMMARY | 2024-09-27 22:40 | XMS_ITS | Clinical Summary ---
Author Organization [facility] Address [address] [place] [address] Phone Care Team Providers Care Metal Wire Coating Operator Name Role Phone Leonid Cherry MD Primary Care Provider [phone] Allergies No known active allergies Medications multivitamin (DAILY-KERI) tablet Take 1 Tablet by mouth daily. Active Active Problems No known active problems Immunizations Immunization Administration Dates Next Due (M-M-R II/PRIORIX)(12 MO UP) MEASLES, MUMPS AND RUBELLA VIRUS VACCINE, 0.5 ML IM/SUBCUT 11/08/2004 Dt Dtp Dtap Vaccine 11/08/2004,10/02/2000 HIB, Unspecified Formulation 10/02/2000 IPV/OPV 11/08/2004,10/02/2000 Family History Medical History Relation Name Comments No Known Problems Father No Known Problems Mother Relation Name Status Comments Father Alive Mother Alive Social History Tobacco Use Types Packs/Day Years Used Date Smoking Tobacco: Never Smokeless Tobacco: Never Alcohol Use Standard Drinks/Week Comments No 0 (1 standard drink = 0.6 oz pur e alcohol) Sex and Gender Information Value Date Recorded Sex Assigned at Not on file 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 Gender Identity Not on file Sexual Orientation Not on file Last Filed Vital Signs Vital Sign Reading Time Taken Comments Blood Pressure 117/68 07/18/2017 1:08 PM CDT Pulse 77 07/18/2017 1:08 PM CDT Temperature 35.9 C (96.7 F) 06/22/2016 1:30 PM CDT Respiratory Rate 16 06/22/2016 1:00 PM CDT Oxygen Saturation 95% 06/22/2016 1:30 PM CDT Inhaled Oxygen Concentration - - Weight 113.4 kg (250 lb) 07/18/2017 1:08 PM CDT Height 182.9 cm (6') 07/18/2017 1:08 PM CDT Body Mass Index 33.91 07/18/2017 1:08 PM CDT Plan of Treatment Health Maintenance Due Date Last Done Comments HPV VACCINES (1 - Male 3-dose series) 2014 DTAP/TDAP/TD VACCINES (3 - Tdap) 2018 11/09/19, 10/02/2000 HEPATITIS B VACCINES (1 of 3 - 19+ 3-dose series) 2018 INFLUENZA VACCINE (#1) 2024 Medical Devices Implanted Type Area Button Attaching Machine Operator Device Identifier Shelf Expiration Date Model / Serial / Lot Screw Biocomp Intrfrnc 8x23mm Ar-[id number] - [id number] Implanted:Qty: 1 on 06/22/2016 by Mynor Sotomayor MD at [facility] Screw Right: Knee [employer] 03/26/2018 AR-1380C / / [id number] Screw Biocomp Intrfrnc 7x23mm Ar-1370c - [id number] Implanted:Qty: 1 on 06/22/2016 by Mynor Sotomayor MD at [facility] Screw Right: Knee [employer] 02/23/2018 AR-1370C / / [id number] Insurance AETNA LOCAL AETNA LOCAL Care Teams Metal Wire Coating Operator Relationship Specialty Start Date End Date Leonid Cherry MD [address] [place], [place] [id number] PCP - General Family Practice 05/02/16
--- OUTSIDE RECORDS SUMMARY | 2024-09-27 22:40 | XMS_ITS | Clinical Summary ---
Author Organization [facility] Address [address] Lopezn: Epic [place] [address] Care Team Providers Care Outsole Rounder Name Role Phone Leonid Cherry MD Primary Care Provider [phone] Allergies No known active allergies Medications naproxen (NAPROSYN) 500 mg tablet Take 1 Tablet (500 mg) by mouth 2 times daily with meals. 60 Tablet 1 03/11/2022 3:12 PM EVENING ANCHOR 03/11/2022 Active oxyCODONE-acetam inophen (Percocet) 5-325 mg tabletIndication s:Acute pain of right knee Take 1 Tablet by mouth every 4 hours as needed for Pain, Severe. Max Daily Amount: 6 Tablets 42 Tablet 03/16/2022 10:57 AM EVENING ANCHOR 03/16/2022 Active cyclobenzaprine (FLEXERIL) 10 mg tabletIndication s:S/P right knee arthroscopy Take 1 Tablet (10 mg) by mouth 3 times daily as needed for Spasm. 30 Tablet 03/31/2022 Active multivitamin (DAILY-KERI) tablet Take 1 Tablet by mouth daily. 06/10/2016 Active Active Problems No known active problems [...] Types Packs/Day Years Used Date Smoking Tobacco: Some Days Cigarettes 0.5 4 Smokeless Tobacco: Current Tobacco Cessation:Ready to Q uit: Not Asked; Counseling Given: Not Answered Comments:Chews 1 Can/Day Alcohol Use Standard Drinks/Week Comments Yes 6 (1 standard drink = 0.6 oz pur e alcohol) 1 Pint/Day Sex and Gender Information Value Date Recorded Sex Assigned at Not on file Legal Sex Male 5:06 PM EVENING ANCHOR Gender Identity Not on file Sexual Orientation Not on file Last Filed Vital Signs Vital Sign Reading Time Taken Comments Blood Pressure 130/70 07/27/2022 1:53 PM CDT Pulse 102 03/16/2022 9:57 AM EVENING ANCHOR Temperature 36.2 C (97.2 F) 03/11/2022 3:02 PM EVENING ANCHOR Respiratory Rate 18 03/11/2022 3:30 PM EVENING ANCHOR Oxygen Saturation 96% 03/11/2022 3:30 PM EVENING ANCHOR Inhaled Oxygen Concentration - - Weight 122.5 kg (270 lb) 07/27/2022 1:53 PM CDT Height 182.9 cm (6') 07/27/2022 1:53 PM CDT Body Mass Index 36.62 07/27/2022 1:53 PM CDT Plan of Treatment Health Maintenance Due Date Last Done Comments HPV VACCINES (1 - Male 3-dose series) 2014 DTAP/TDAP/TD VACCINES (3 - Tdap) 2018 11/09/19 05, 10/02/2000 HEPATITIS B VACCINES (1 of 3 - 19+ 3-dose series) 2018 INFLUENZA VACCINE (#1) 2024 Medical Devices Implanted Type Area Asphalt Tamping Machine Operator Device Identifier Shelf Expiration Date Model / Serial / Lot Sutton Suture Fiberstitch Crvd 2-0 Fiberwire Ar-4570 - [id number] Implanted:Qty: 1 on 03/11/2022 by Mynor Sotomayor MD at [facility] Sutton Right: Knee [employer] [id number] 04/26/2026 AR-4570 / / [id number] Sutton Suture Fiberstitch Crvd 2-0 Fiberwire Ar-4570 - [id number] Implanted:Qty: 1 on 03/11/2022 by Mynor Sotomayor MD at [facility] Sutton Right: Knee [employer] [id number] 04/26/2026 AR-4570 / / [id number] Sutton Suture Fiberstitch Crvd 2-0 Fiberwire Ar-4570 - [id number] Implanted:Qty: 1 on 03/11/2022 by Mynor Sotomayor MD at [facility] Sutton Right: Knee [employer] [id number] 10/24/2025 AR-4570 / / [id number] Quadlink Imp Sys 10mm Quadpro Sutton [id number] - [id number] Implanted:Qty: 1 on 03/11/2022 by Mynor Sotomaoyr MD at [facility] Sutton Right: Knee [employer] 07/24/2025 [id number]-[id number] -100 / / [id number] Sutton Suture 4.75mm Secondary Fixation W/ Swiveloc Ar-1593-Bc - [id number] Implanted:Qty: 1 on 03/11/2022 by Mynor Sotomayor MD at [facility] Sutton Right: Knee [employer] [id number] 10/24/2025 AR-1593-BC / / [id number] Screw Biocomp Intrfrnc 7x23mm Ar-1370c - [id number] Implanted:Qty: 1 on 06/22/2016 by Mynor Sotomayor MD Screw Right: Knee [employer] 02/23/2018 AR-1370C / / [id number] Screw Biocomp Intrfrnc 8x23mm Ar-1380c - [id number] Implanted:Qty: 1 on 06/22/2016 by Mynor Sotomayor MD Screw Right: Knee [employer] 03/26/2018 AR-1380C / / [id number] Insurance BCBS BLUE ACCESS/TRUE BLUE PPO [employer] [employer] Commercial Care Teams Outsole Rounder Relationship Specialty Start Date End Date Leonid Cherry MD [address] [place] [address] PCP - General Family Practice 05/02/16
--- OUTSIDE RECORDS SUMMARY | 2024-09-27 22:40 | XMS_ITS | Encounter Summary ---
Author Organization [facility] Address [address] [place] [address] Care Team Providers Care Multiskill Operator Name Role Phone Leonid Cherry MD Primary Care Provider [phone] Encounter Details Date Type Department Care Team (Latest Contact Info) Description 12/19/2000 Outpatient Historical [facility] Gen Spec [facility] [place] [address] [place] [id number] Jerardo Valdez MD [address], [address] [place] [address] Hydrocele, unspecified (Primary Dx) Social History Tobacco Use Types Packs/Day Years Used Date Smoking Tobacco: Never Assessed Sex and Gender Information Value Date Recorded Sex Assigned at Not on file 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
[2024-09-27 22:53] VITALS: BP 145/96; PULSE 72; RESP 16; TEMP 36.7; O2SAT 98; BMI 33.2
[2024-09-27 23:35] LABS: Hematocrit 44.9 % (37-53); Hemoglobin 15.70 g/dL (11.27-16.99); Mean Corpuscular HGB Conc 35.0 g/dL (30-55); Mean Corpuscular Hemoglobin 30.1 pg (27-33); Mean Corpuscular Volume 86.0 fl (82-101); Nucleated Red Blood Cells % 0 %; Platelet Count 230 10^3/cmm (157-399); Red Blood Count 5.22 10^6/uL (3.85-5.65); White Blood Count 8.18 10^3/uL (3.29-11.43)
--- NOTE | 2024-09-27 23:43 | USR_ITS ---
PROCEDURE INFORMATION: Exam: US Abdomen, Limited; Right Upper Quadrant Exam date and time: 09/27/2024 11:56 PM Age: 24 years old Clinical indication: Abdominal pain; Localized; Right upper quadrant (ruq); Prior surgery; Surgery date: 6+ months; Surgery type: Left kid removed. Appendectomy. HX of intestinal surg; Additional info: Ruq pain TECHNIQUE: Imaging protocol: Real time ultrasound of the abdomen with image documentation. Limited exam focused on the right upper quadrant. COMPARISON: CT abdomen pelvis w con* [id number] 02/03/2019 11:34 PM FINDINGS: Liver: Hepatic parenchymal disease with diffusely increased echogenicity. Gallbladder: The gallbladder is decompressed. No stone or sludge in the gallbladder. Apparent gallbladder wall thickening is likely due to underdistention. Biliary ducts: The common bile duct is normal in size measuring 4 mm. Pancreas: Visualized pancreas is unremarkable. Right kidney: The right kidney measures 12.9 cm in length with no hydronephrosis or renal calculus. US/US gall bladder [id number] IMPRESSION: No acute findings.
[2024-09-27 23:52] LABS: Alanine Aminotransferase 28 U/L (0-41); Albumin Level 4.5 g/dL (3.5-5.2); Alkaline Phosphatase 68 U/L (40-130); Anion Gap 19.5 (5-19); Aspartate Amino Transferase 16 U/L (0-40); Blood Urea Nitrogen 12 mg/dL (6-20); Calcium 9.9 mg/dL (8.5-10.5); Carbon Dioxide 21 mmol/L (22-29); Chloride 98 mmol/L (98-107); Creatinine Clr Calc Pharmacy 132.1513; Globulin 3.5 g/dL (1.3-4.6); Glucose 102 mg/dL (65-115); Osmolality Calculated 280 mOsm/kg (285-295); Potassium 3.5 mmol/L (3.5-5.1); Sodium 135 mmol/L (136-145); Total Protein 8.0 g/dL (6.6-8.7)
[2024-09-27 23:58] LABS: Glucose Urine UA Negative (Normal); Nitrate Urine Negative (Negative); Specific Gravity, Urine 1.017 (1.005-1.030)
[2024-09-28] LABS: Lipase 63 U/L (13-60)
[2024-09-28 00:03] LABS: Add Urine Microscopic? YES
--- NOTE | 2024-09-28 01:00 | ED_ITS ---
HPI - Abdominal Pain 2 General: Chief Complaint: Abdominal Pain Stated Complaint: Upper R ABD Pain N/V/D Fever Time Seen by Provider: 09/27/24 23:30 History of Present Illness: 24-year-old male patient presents emerge ncy department with right upper quadrant pain. Patient states this hurts worse after he eats. Patient states this has been going on for months but worsened again today. Patient denies any nausea or vomiting. Patient denies any fever. Patient denies any cough congestion chest pain or shortness of breath. Patient denies any urinary symptoms Related Data Previous Rx's ?Medication ?Instructions ?Recorded CAM boot #1 ea 06/13/24 famotidine 20 mg tablet (Pepcid) 20 mg PO DAILY #20 ta bs 09/28/24 Allergies Allergy/AdvReac Type Severity Reaction Status Date / Time cephalexin (From Keflex) Allergy ADR-Vomitin Verified 07/02/24 07:26 g Review of Systems 2 General: Reports: 10 or more systems reviewed and unremarkable except in HPI and below PFSH ED 2 PFSH: Medical History Foot and ankle pain Ligamentous laxity of ankle Social History Smoking and tobacco/nicotine status: current every day tobacco/nicotine user cigarettes Packs smoked per day: 0.01 and e-cigarettes E-Cigarette Details: vaporizer device and with nicotine E-cig/vape details: Refill/ week Second hand smoke exposure: No Alcohol intake: current Alcohol type: beer and hard liquor Substance/Drug Use: never Physical Exam 2 Const: COMMON NORMALS: no acute distress, patient oriented x3, healthy appearing and well nourished GENERAL APPEARANCE: cooperative, comfortable, well kempt and well developed; not ill appearing ORIENTATION/CONSCIOUSNESS: Yes awake HENMT: COMMON NORMALS: normocephalic and atraumatic HEAD & SCALP: n ormocephalic and atraumatic Eye: COMMON NORMALS: EOMs intact bilaterally and no scleral icterus Neck/C-Spine: COMMON NORMALS: full ROM, no lymphadenopathy, supple and no JVD GENERAL: Yes normal visual inspection and Yes trachea midline CERVICAL SPINE: Yes cervical ROM normal Lymph: LYMPHATIC: no lymphadenopathy noted and no lymphedema noted Chest: COMMONS NORMALS: normal inspection of the chest and normal palpation of entire chest wall Resp: COMMON NORMALS: normal respiratory effort, No retractions, No use of accessory muscles and clear to auscultation bilaterally EFFORT & INSPECTION: Yes able to speak in complete sentences and Yes symmetric chest movement A USCULTATION: clear to auscultation bilaterally Cardio: COMMON NORMALS: no JVD, regular rate and regular rhythm RATE: r egular rate RHYTHM: regular rhythm GI: COMMON NORMALS: Normal to inspection, nondistended, normoactive bowel sounds present, Soft to palpation, non-tender, No hepatosplenomegaly present, no masses and no bruits INSPECTION: Yes normal to inspection AUSCULTATION: Y es normoactive bowel sounds PALPATION: Yes Soft to palpation and Yes No hepatosplenomegaly present PERCUSSION: normal to percussion RECTAL EXAM: Y es deferred : COMMON NORMALS: Yes no CVA tenderness BLADDER/KIDNEY EXAM: Yes no CVA tenderness Back/Pelvis: COMMON NORMALS: no CVA tenderness, thoracic and lumbar spine normal to inspection, no thoracic nor lumbar tenderness and thoraco-lumbar ROM normal THORACIC SPINE/UPPER BACK: Yes normal to inspection LUMBAR SPINE/LOWER BACK: Yes normal to inspection Extremity: COMMON NORMALS: normal to inspection, full ROM and capillary refill normal GENERAL: Yes normal exam except as noted Neuro: COMMON NORMALS: patient oriented x3, CN's II-XII intact bilaterally, moves all extremities and no focal motor deficits Psych: COMMON NORMALS: mental status grossly normal, Normal thought process present, cooperative, normal affect, speech normal, activity/motor behavior normal, denies hallucinations, denies homicidal ideation and denies suicidal ideation APPEARANCE: Yes grossly normal and Yes well kempt ATTITUDE: Yes calm ACTIVITY/MOTOR BEHAVIOR: Yes appropriate eye contact SPEECH: Yes normal speech THOUGHT PROCESS: Normal thought process present THOUGHT CONTENT: Yes Normal thought content present ATTENTION/CONCENTRATION: Yes attention grossly intact MEMORY/COGNITION: Yes memory grossly intact I NSIGHT: Good insight present (Psych) JUDGEMENT: Good judgement present (Psych) Skin: COMMON NORMALS: no rashes or lesions noted, no wounds, turgor normal, no jaundice, no petechiae and no mottling GENERAL SKIN EXAM: no rashes or lesions noted and turgor normal Course 2 Vital Signs: Vital signs: Vital Signs Temperature 98.1 F 09/27/24 22:53 Pulse Rate 78 09/28/24 01:20 Respiratory Rate 16 09/28/24 01:20 Blood Pressure 122/75 09/28/24 01:20 Pulse Oximetry 97 09/28/24 01:20 Oxygen Delivery Me thod Room Air 09/27/24 22:53 MDM - Abdominal Pain Medical Decision Making Patient is well-appearing nontoxic in no acute distress.24-year-old male patient presents emergency department with right upper quadrant pain. Patient states this hurts worse after he eats. Patient states this has been going on for months but worsened again today. Patient denies any nausea or vomiting. Patient denies any fever. Patient denies any cough congestion chest pain or shortness of breath. Patient denies any urinary symptoms. Labs do not reveal any concerning findings I did obtain an ultrasound which reveals no acute findings. I advised patient that his symptoms are likely related to GERD. Patient currently does not take any medications for this we will start patient on Pepcid at this time. I advised patient that he likely would be outpatient HIDA scan if pain continues patient is to follow-up with his primary care physician I did review home care and return precautions with patient I do not feel patient would warrant benefit from any additional emergency testing at this time patient is medically cleared and appropriate for discharge Lab Data 09/27/24 23:17 09/27/24 23:17 Labs/Radiology: Radiology Impressions Gallbladder Ultrasound 09/27/24 23:43 IMPRESSION: No acute findings. Laboratory Results WBC 8.18 10^3/uL (3.29-11.43) 09/27/24 23:17 RBC 5.22 10^6/uL (3.85-5.65) 09/27/24 23:17 Hgb 15.70 g/dL (11.27-16.99) 09/27/24 23:17 Hct 44.9 % (37-53) 09/27/24 23:17 MCV 86.0 fl (82-101) 09/27/24 23:17 MCH 30.1 pg (27-33) 09/27/24 23:17 MCHC 35.0 g/dL (30-55) 09/27/24 23:17 RDW 11.5 % (12.1-15.1) L 09/27/24 23:17 Plt Count 230 10^3/cmm (157-399) 09/27/24 23:17 MPV 9.9 fL (7.4-10.4) 09/27/24 23:17 Neut % (Auto) 46.4 % 09/27/24 23:17 Lymph % (Auto) 35.3 % 09/27/24 23:17 [place] % (Auto) 15.4 % 09/27/24 23:17 Eos % (Auto) 2.3 % 09/27/24 23:17 Baso % (Auto) 0.5 % 09/27/24 23:17 Neut # (Auto) 3.79 10^3/uL (1.8-7.7) 09/27/24 23:17 Lymph # (Auto) 2.9 10^3/uL (0.8-4.8) 09/27/24 23:17 [place] # (Auto) 1.3 10^3/uL (0.2-0.9) H 09/27/24 23:17 Eos # (Auto) 0.2 10^3/uL (0.0-0.8) 09/27/24 23:17 Baso # (Auto) 0.0 10^3/uL (0.0-0.1) 09/27/24 23:17 Nucleated RBC % (auto) 0 % 09/27/24 23:17 Nucleated RBCs # 0.0 /100WBC 09/27/24 23:17 Sodium 135 mmol/L (136-145) L 09/27/24 23:17 Potassium 3.5 mmol/L (3.5-5.1) 09/27/24 23:17 Chloride 98 mmol/L (98-107) 09/27/24 23:17 Carbon Dioxide 21 mmol/L (22-29) L 09/27/24 23:17 Anion Gap 19.5 (5-19) H 09/27/24 23:17 BUN 12 mg/dL (6-20) 09/27/24 23:17 Creatinine 1.1 mg/dL (0.7-1.2) 09/27/24 23:17 GFR Calculation 81.6 mL/min (90-130) L 09/27/24 23:17 Glucose 102 mg/dL (65-115) 09/27/24 23:17 Calculated Osmolality 280 mOsm/kg (285-295) L 09/27/24 23:17 Calcium 9.9 mg/dL (8.5-10.5) 09/27/24 23:17 Total Bilirubin 0.3 mg/dL (0.15-1.2) 09/27/24 23:17 AST 16 U/L (0-40) 09/27/24 23:17 ALT 28 U/L (0-41) 09/27/24 23:17 Alkaline Phosphatase 68 U/L (40-130) 09/27/24 23:17 Total Protein 8.0 g/dL (6.6-8.7) 09/27/24 23:17 Albumin 4.5 g/dL (3.5-5.2) 09/27/24 23:17 Globulin 3.5 g/dL (1.3-4.6) 09/27/24 23:17 Lipase 63 U/L (13-60) H 09/27/24 23:17 Urine Color Yellow (Yellow) 09/27/24 23:51 Urine Appearance Clear (CLEAR) 09/27/24 23:51 Urine pH 5.5 (5-7) 09/27/24 23:51 Ur Specific [place] 1.017 (1.005-1.030) 09/27/24 23:51 Urine Protein Negative (Negative) 09/27/24 23:51 Urine Glucose (UA) Negative (Normal) 09/27/24 23:51 Urine Ketones Negative (Negative) 09/27/24 23:51 Urine Blood Negative (Negative) 09/27/24 23:51 Urine Nitrate Negative (Negative) 09/27/24 23:51 Urine Bilirubin Negative (Negative) 09/27/24 23:51 Urine Urobilinogen 1.0 mg/dL (Negative) 09/27/24 23:51 Ur Leukocyte Esterase Negative (Negative) 09/27/24 23:51 Urine RBC 0-2 /hpf (0-2) 09/27/24 23:51 Urine WBC 0-5 /hpf (0-5) 09/27/24 23:51 Ur Squamous Epith Cells 0-5 /hpf (0-5) 09/27/24 23:51 Amorphous Sediment Not Reportable 09/27/24 23:51 Urine Bacteria None seen /hpf (NONE) 09/27/24 23:51 Hyaline Casts 1.21 /lpf 09/27/24 23:51 All radiology interpretation(s) finalized by discharge Discharge Plan Discharge Patient Disposition: Home Clinical Impression: Abdominal pain, epigastric Condition: Stable Prescriptions: New famotidine [Pepcid] 20 mg tablet 20 mg PO DAILY Qty: 20 0RF No Action (DME) CAM boot See Rx Instructions .Route .MEDSUPPLY Qty: 1 0RF Rx Instructions: As directed Discharge Orders: Discharge ED (Routine); Ordered 09/28/24 Ordered By: Elizabeth Helm Discharge Diet: Advance as tolerated Discharge Activity: Increase activity as tolerated Patient Instructions: GERD (Gastroesophageal Reflux Disease) (DC), Abdominal Pain (ED), Opioid Safety, Pain Management, Patient Portal & Nelson Instructions Activity Restrictions/Additional Instructions: Take meds as prescribed Return to ER with any worsening of abd pain, fever, chest pain or shortness of breath Print Language: Macedonian Coding Level of Care Code ED Director Of Counseling for Shakira Quispe
[2024-09-28 01:20] VITALS: BP 122/75; PULSE 78; RESP 16; O2SAT 97
== END 2024-09-28 01:21 | disposition home or self-care (01) ==
PROVIDERS: Emergency Medicine; Emergency Provider Registered Nurse
DX: R10.13 Epigastric pain (principal); F17.210 Nicotine dependence, cigarettes, uncomplicated
CPT/HCPCS: 36415; 76705; 80053; 81001; 83690; 85025; 96372; 99284; J1885